=== PATIENT | female | born 1955 | race Caucasian/White ===

== ENCOUNTER → 2017-07-10 | Outpatient (CLI) | payer OTHER ==
[~2017-07-10] MED LIST: ASCO500 PO; BUPR150ER PO; DHEA PO; ERGO400 PO; FISH1000 PO; LEVFLO500 PO; LEVSOD25 PO; Nature-Throi16.25 MG PO; PHENA200 PO; PROG100 PO; PROGESTERONE CREAM; Vibramycin100 MG PO; [UNRECOGNIZED DRUG - OTHER] PO
== END ==
LOC: LAB EV 14:42 → LAB SHORT 14:42
DX: L08.9 Local infection of the skin and subcutaneous tissue, unspecified (principal)
CPT/HCPCS: 87070; 87075; 87205

== ENCOUNTER 2017-07-30 08:04 | Day surgery (SDC) | payer OTHER ==
[~2017-07-30] VITALS: Ht 162.6 cm; Wt 96.2 kg
== END 2017-07-30 23:05 | disposition home or self-care (01) ==
LOC: ORSCMMR 08:04 → ORD 09:30 → ORSCMMR 09:30
PROVIDERS: Surgery
PROC: 0JB40ZZ Excision of Right Neck Subcutaneous Tissue and Fascia, Open Approach (ICD-10-PCS; principal; 2017-07-30 09:30)
DX: L72.3 Sebaceous cyst (principal); E66.9 Obesity, unspecified; Z68.36 Body mass index [BMI] 36.0-36.9, adult
CPT/HCPCS: 88304; J2250; J3010; J7120

== ENCOUNTER → 2019-03-06 | Outpatient (CLI) | payer OTHER ==
[2019-03-08 13:07] LABS: HPV 16 Negative (Negative); HPV 18 Negative (Negative); HPV OTHER HR TYPES Negative (Negative)
== END | disposition home or self-care (01) ==
LOC: LAB 17:35 → LAB SHORT 17:35
PROVIDERS: Nurse Practitioner Women's Health
DX: Z12.4 Encounter for screening for malignant neoplasm of cervix (principal); Z91.89 Other specified personal risk factors, not elsewhere classified
CPT/HCPCS: 87624; G0123

== ENCOUNTER 2023-05-23 10:27 | Emergency (ER) | payer OTHER ==
[~2023-05-23] VITALS: Ht 162.6 cm; Wt 99.8 kg
[2023-05-23 10:48] VITALS: BP 159/89
== END 2023-05-23 13:25 | disposition home or self-care (01) ==
LOC: ER 10:27
DX: S83.91XA Sprain of unspecified site of right knee, initial encounter (principal); X58.XXXA Exposure to other specified factors, initial encounter; Z88.0 Allergy status to penicillin; Z88.2 Allergy status to sulfonamides; Z91.048 Other nonmedicinal substance allergy status
CPT/HCPCS: 29505; 73562-RT; 99283-25

== ENCOUNTER → 2024-03-20 | Outpatient (CLI) | payer OTHER | END | disposition home or self-care (01) | LOC: LAB SHORT 12:19 → LAB 12:19 | DX: L73.9 Follicular disorder, unspecified (principal) | CPT/HCPCS: 87070; 87205 ==